=== PATIENT | female | born 1980 | race Hispanic/Latino ===

== ENCOUNTER 2022-01-09 09:26 | Emergency (ER) | payer MEDICAID ==
[2022-01-09 20:37] LABS: SARS-CoV-2 PCR by NAA Not Detected (NotDetected)
== END 2022-01-09 11:35 | disposition home or self-care (01) ==
LOC: CSHERS 09:26
DX: J11.1 Influenza due to unidentified influenza virus with other respiratory manifestations (principal); Z20.822 Contact with and (suspected) exposure to COVID-19
CPT/HCPCS: 87081; 87430; 87804; 99283; U0003; U0005

== ENCOUNTER 2022-12-08 10:01 | Outpatient (CLI) | payer MEDICAID | END 2022-12-08 10:02 | disposition home or self-care (01) | LOC: CSHMAMMO 10:01 | PROVIDERS: ATTEND Nurse Practitioner Women's Health | DX: Z12.31 Encounter for screening mammogram for malignant neoplasm of breast (principal); R92.8 Other abnormal and inconclusive findings on diagnostic imaging of breast | CPT/HCPCS: 77067 ==

== ENCOUNTER 2022-12-23 14:03 | Outpatient (CLI) | payer MEDICAID | END 2022-12-23 14:04 | disposition home or self-care (01) | LOC: CSHMAMMO 14:03 | PROVIDERS: ATTEND Nurse Practitioner Women's Health | DX: N64.89 Other specified disorders of breast (principal) | CPT/HCPCS: G0279 ==

== ENCOUNTER 2023-06-23 09:11 | Outpatient (CLI) | payer MEDICAID | END 2023-06-23 09:12 | disposition home or self-care (01) | LOC: CSHULT 09:11 | PROVIDERS: ATTEND Nurse Practitioner Women's Health | DX: N63.10 Unspecified lump in the right breast, unspecified quadrant (principal) ==